=== PATIENT | female | born 1955 | race Caucasian/White ===

== ENCOUNTER 2018-06-11 09:48 | Emergency (ER) | payer OTHER ==
[~2018-06-11] VITALS: Ht 170.2 cm; Wt 97.5 kg
[2018-06-11] MEDS ORDERED: JANTOVEN2.5 MG PO (10:24)
[2018-06-11] MEDS ORDERED: JANTOVEN5 MG PO (10:24)
[2018-06-11] MEDS ORDERED: K-TAB ER20 MEQ PO (10:25)
[2018-06-11] MEDS ORDERED: SIMVASTATIN20 MG PO (10:26)
[2018-06-11] MEDS ORDERED: FLUDROCORTISON0.1 MG PO (11:25)
[2018-06-11] MEDS ORDERED: MIDODRINE HCL2.5 MG PO (11:40)
--- NOTE | 2018-06-12 13:38 | EKG ---
[facility] [address] [facility] [place] [id number] Signed Normal sinus rhythm Normal ECG No previous ECGs available Confirmed by ALLISON VICENTE MD ([id number] on 06/12/2018 1:38:25 PM Electronically Signed By: ALLISON VICENTE MD 06/12/18 1338 PATIENT NAME: MARTI COOK Electrocardiogram DATE OF : 53 PHYSICIAN: ALLISON VICENTE MD REPORT #: [id number] REPORT IS CONFIDENTIAL AND NOT TO BE RELEASED WITHOUT AUTHORIZATION
== END 2018-06-11 13:46 | disposition home or self-care (01) ==
LOC: ED 09:48
DX: R20.2 Paresthesia of skin (principal); I48.91 Unspecified atrial fibrillation; Z86.73 Personal history of transient ischemic attack (TIA), and cerebral infarction without residual deficits; Z88.1 Allergy status to other antibiotic agents; Z88.8 Allergy status to other drugs, medicaments and biological substances; Z79.01 Long term (current) use of anticoagulants; Z79.899 Other long term (current) drug therapy
CPT/HCPCS: 70496; 70498; 80053; 85025; 85610; 85730; 93005; 93010; 99291; Q9967